=== PATIENT | female | born 1970 | race Caucasian/White ===

== ENCOUNTER 2022-05-19 07:23 | Emergency (ER) | payer OTHER ==
--- OUTSIDE RECORDS SUMMARY | 2022-05-19 07:26 | XMS REPORT | Continuity of Care Document ---
:1970 Author Organization [facility] t Address [address] [place] [address] Care Team Providers Name Role Phone RobertsonLisa redmond Attending Clinician Unavailable Problems This patient has no known problems. Allergies, Adverse Reactions, Alerts This patient has no known allergies or adverse reactions. Medications This patient has no known medications. Procedures This patient has no known procedures. Encounters Start End Encounter Admission Attending Care Care Encounter Source Date/Time Date/Time Type Type Clinicians Facility Department ID 2022-03-27 Outpatient [facility]ae[facility] [id number] Common 14:10:02 Lisa [facility] 2021-11-23 Outpatient JOSE Pae[facility] [id number] Common 14:31:02 Lisa [facility] 2021-11-06 Outpatient JOSE Pae[facility] [id number] Common 09:52:01 Lisa [facility] 2021-10-25 Outpatient Philippe [facility] [place] [id number] Common 12:21:30 Lisa [id number] [facility] 2021-10-25 Outpatient Philippe [facility] [id number] Common 12:03:01 Lisa [id number] [facility] 2021-10-25 Outpatient Philippe [facility] [place] [id number] Common 11:49:11 Lisa [id number] [facility] 2021-10-25 Outpatient Robertson, STLMLC [facility] [id number] Common 11:48:31 Lisa [id number] [facility] 2021-10-25 Outpatient Robertson, STLMLC [facility] [id number] Common 11:48:04 Lisa [id number] [facility] 2022-04-17 2022-04-17 ambulatory [facility]C [facility] [id number] Common 00:00:00 00:00:00 [facility] 2021-11-23 2021-11-23 ambulatory [facility]C [facility] [id number] Common 00:00:00 00:00:00 [facility] 2021-05-08 2021-05-08 Outpatient [facility]C [facility] [id number] Common 00:00:00 00:00:00 [facility] 2021-04-28 2021-04-28 Outpatient STLMLC [facility] [id number] Common 00:00:00 00:00:00 [facility] 2021-03-29 2021-03-29 Outpatient [facility]LMLC [facility] [id number] Common 00:00:00 00:00:00 [facility] 2020-11-08 2020-11-08 Outpatient STLMLC [facility] [id number] Common 00:00:00 00:00:00 [facility] 2020-08-09 2020-08-09 Outpatient [facility]C [facility] [id number] Common 00:00:00 00:00:00 [facility] 2020-08-08 2020-08-08 Outpatient [facility] [id number] Common 00:00:00 00:00:00 [facility] 2020-08-02 2020-08-02 Outpatient [facility]C [facility] [id number] Common 00:00:00 00:00:00 [facility] 2020-06-21 2020-06-21 Outpatient [facility]LMLC [facility] [id number] Common 00:00:00 00:00:00 [facility] Results This patient has no known results.
[2022-05-19] MEDS ORDERED: ONDANSETRON 4 MG/2 ML VIAL ONE (08:20)
[2022-05-19] MEDS ORDERED: NA CHLORIDE 0.9% 1,000 ML ONE (08:20)
--- NOTE | 2022-05-19 08:37 | RAD REPORT ---
EXAM DESCRIPTION: CT - Head Brain Wo Cont - 05/19/2022 8:10 am CLINICAL HISTORY: fever, headache COMPARISON: No comparisons TECHNIQUE: Axial 5 mm thick images of the head were obtained without IV contrast. All CT scans are performed using dose optimization technique as appropriate and may include automated exposure control or mA/KV adjustment according to patient size. FINDINGS: No intracranial hemorrhage, mass, edema or shift of mid-line structures. No acute infarcti on changes seen. No abnormal extra-axial fluid collections. Ventricles are normal. Mastoid air cells and visualized portions of the paranasal sinuses are clear. No acute bony findings. IMPRESSION: Negative non-contrast CT head examination.
[2022-05-19 08:40] LABS: Absolute Lymphocytes (CBC) 2.3 K/uL (0.7-4.9); Hematocrit 38.8 % (36.0-45.0); Lymphocytes % 17.5 % (15.3-44.8); MCV 91.8 fL (80-100); MPV 8.5 fL (7.6-11.3); RBC Red Blood Cell Count 4.23 M/uL (3.86-4.86)
[2022-05-19 08:51] LABS: Albumin 3.8 g/dL (3.4-5.0); Bilirubin Total 0.7 mg/dL (0.2-1.0); Magnesium 2.3 mg/dL (1.8-2.4); Potassium 4.1 mmol/L (3.5-5.1); Protein, Total 7.7 g/dL (6.4-8.2); Troponin High Sensitivity 4.2 pg/mL (<58.9)
--- NOTE | 2022-05-19 09:25 | RAD REPORT ---
EXAM DESCRIPTION: RAD - Chest Single View - 05/19/2022 9:17 am CLINICAL HISTORY: FEVER COMPARISON: None TECHNIQUE: AP portable chest image was obtained 05/19/2022 9:17 am . FINDINGS: Lungs are clear. Heart and vasculature are normal. No measurable pleural effusion and no p neumothorax. No acute bony abnormality seen. No acute aortic findings suspected. IMPRESSION: No acute cardiopulmonary process.
[2022-05-19 09:47] LABS: Urine Blood Negative (Negative); Urine Glucose Negative (Negative); Urine Protein Negative (Negative); Urine Specific Gravity 1.015 (1.005-1.030)
[2022-05-19 10:42] LABS: Urine Bacteria <20 /HPF (<20); Urine RBC <5 /HPF (None Seen)
[2022-05-19] MEDS ORDERED: KETOROLAC 30 MG/ML INJ ONE (11:25)
--- NOTE | 2022-05-19 12:03 | ER ---
Nurse's Notes [facility] Name: Ct Thomson Age: 51 yrs Sex: Female : 1970 Arrival Date: 05/19/2022 Time: 07:25 Bed 12 Private MD: Lisa Paez Diagnosis: Acute febrile illness Presentation: 05/19 07:35 Chief complaint: Patient states: i've had aches pains, fever, was seen at [place], did iw urine, blood tests, covid swab, flu swab, all was normal , now her fever is up to 103. Coronavirus screen: Client presents with at least one sign or symptom that may indicate coronavirus-19. Ebola Screen: Patient negative for fever greater than or equal to 101.5 degrees Fahrenheit, and additional compatible Ebola Virus Disease symptoms Patient denies exposure to infectious person. Patient denies travel to an Ebola-affected area in the 21 days before illness onset. No symptoms or risks identified at this time. Initial Sepsis Screen: Does the patient meet any 2 criteria? No. Patient's initial sepsis screen is negative. Does the patient have a suspected source of infection? No. Patient's initial sepsis screen is negative. Risk Assessment: Do you want to hurt yourself or someone else? Patient reports no desire to harm self or others. Onset of symptoms was May 05, 2022. 07:35 Method Of Arrival: Ambulatory iw 07:35 Acuity: MORE 3 iw Triage Assessment: 08:00 General: Appears in no apparent distress. Behavior is calm, cooperative. 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 - Social history:: Smoking status: Patient reports the use of cigarette tobacco products. Screenin:50 Abuse screen: Denies threats or abuse. Denies injuries from another. Nutritional iw screening: No deficits noted. Tuberculosis screening: No symptoms or risk factors identified. Fall Risk None identified. Assessment: 07:45 General: Appears in no apparent distress. Behavior is calm, cooperative. General: iw Reports chills for fever for feeling ill for fatigue for. Pain: Complains of pain in all over body aches. Neuro: Level of Consciousness is awake, alert, obeys commands, Oriented to person, place, time, situation. Cardiovascular: Patient's skin is warm and dry. Respiratory: Respiratory effort is even, unlabored, Respiratory pattern is regular, symmetrical. GI: Reports nausea. Derm: Skin is intact, is healthy with good turgor. Musculoskeletal: Range of motion: intact in all extremities. 09:50 Reassessment: Patient appears in no apparent distress at this time. Patient and/or iw family updated on plan of care and expected duration. Pain level reassessed. Patient is alert, oriented x 3, equal unlabored respirations, skin warm/dry/pink. 10:50 Reassessment: Patient appears in no apparent distress at this time. Patient and/or iw family updated on plan of care and expected duration. Pain level reassessed. Patient is alert, oriented x 3, equal unlabored respirations, skin warm/dry/pink. Vital Signs: 07:35 BP 115 / 76; Pulse 93; Resp 18; Pulse Ox 99% on R/A; Weight 74.84 kg; Height 5 ft. 3 iw in. (160.02 cm); 07:38 Temp 99.8(O); iw 07:35 Body Mass Index 29.23 (74.84 kg, 160.02 cm) iw ED Course: 07:25 Patient arrived in ED. am2 07:26 Lisa Paez FNP-C is Private Physician. am2 07:33 Juliann Avelar MD is Attending Physician. sd2 07:37 Triage completed. iw 07:38 Arm band placed on. iw 07:45 Patient has correct armband on for positive identification. iw 07:52 Eryn Gomez, RN is Primary Nurse. iw 08:11 CT Head Brain wo Cont In Process Unspecified. EDMS 08:23 Inserted saline lock: 20 gauge in left forearm, using aseptic technique. Blood kc6 collected. 08:23 Procalcitonin Sent. kc6 08:23 Troponin High Sensitivity Sent. kc6 08:23 Magnesium Sent. kc6 08:23 CMP Sent. kc6 08:23 CBC with Diff Sent. kc6 09:19 XRAY Chest (1 view) In Process Unspecified. EDMS 09:29 SARS-COV-2 RT PCR (Document "Date of Onset" if Symptomatic) Sent. kc6 09:29 Flu Sent. kc6 09:47 Urine Microscopic Only Sent. kc6 12:28 No provider procedures requiring assistance completed. IV discontinued, intact, iw bleeding controlled, No redness/swelling at site. Pressure dressing applied. Administered Medications: 08:26 Drug: NS 0.9% 1000 ml Route: IV; Rate: 1000 ml; Site: left antecubital; iw 09:30 Follow up: IV Status: Completed infusion iw 08:26 Drug: Zofran (Ondansetron) 4 mg Route: IVP; Site: left antecubital; iw 09:00 Follow up: Response: No adverse reaction iw 11:19 Drug: Ketorolac 15 mg Route: IVP; Site: left antecubital; iw 11:32 Follow up: Response: No adverse reaction iw Medication: 08:00 VIS not applicable for this client. iw Outcome: 12:02 Discharge ordered by . [email or web address] 12:28 Discharged to home ambulatory. iw 12:28 Condition: good 12:28 Discharge instructions given to patient, family, Instructed on discharge instructions, follow up and referral plans. Demonstrated understanding of instructions, follow-up care. 12:29 Patient left the ED. iw Signatures: Dispatcher [employer] Eryn Denton RN RN iw Dhara Martinez Stephanie, MD MD sd2 Kajal Ferrera kc6
--- NOTE | 2022-05-19 12:03 | EDPHYS ---
Physician Documentation [facility] Name: Ct Thomson Age: 51 yrs Sex: Female : 1970 Arrival Date: 05/19/2022 Time: 07:25 Bed 12 Private MD: Lisa Paez ED Physician Juliann Avelar HPI: 05/19 08:20 This 51 yrs old Female presents to ER via Ambulatory with complaints of Fever. sd2 08:20 51 yo F presents with CC of fever and generalized malaise for 2 weeks. Reports sd2 associated chills, body aches, fatigue and recent diarrhea and cough. Has had 3 negative home COVID tests. Has also been seen at [facility] with negative strep, flu and COVID testing as well as normal CXR. Reports she started to feel a little better yesterday but feels worse again today and has had temp up to 103F. Denies CP, SOB, congestion, urinary symptoms. Reports occasional abdominal discomfort. Has scheduled follow up with PCP this upcoming .. 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 - Social history:: Smoking status: Patient reports the use of cigarette tobacco products. ROS: 08:20 Eyes: Negative for injury, pain, redness, and discharge. sd2 08:20 ENT: Negative for injury, pain, and discharge, Cardiovascular: Negative for chest pain, palpitations, and edema, Respiratory: Negative for shortness of breath, cough, wheezing. 08:20 Back: Negative for injury and pain, MS/Extremity: Negative for injury and deformity, Skin: Negative for injury, rash, and discoloration, Neuro: Negative for numbness and tingling. Positive for headache. 08:20 Constitutional: Positive for body aches, chills, fatigue, fever, malaise. 08:20 Abdomen/GI: Positive for abdominal pain, nausea and vomiting, diarrhea, Negative for constipation, black/tarry stool, rectal bleeding. Exam: 08:20 Constitutional: This is a well developed, well nourished patient who is awake, alert, sd2 and in no acute distress. Head/Face: Normocephalic, atraumatic. Eyes: EOMI, normal conjunctiva bilaterally Chest/axilla: Normal chest wall appearance and motion. Nontender with no deformity. Cardiovascular: Regular rate and rhythm with a normal S1 and S2. No gallops, murmurs, or rubs. 2+ distal pulses. Respiratory: Lungs have equal breath sounds bilaterally, clear to auscultation and percussion. No rales, rhonchi or wheezes noted. No increased work of breathing, no retractions or nasal flaring. Abdomen/GI: Soft, non-tender, with normal bowel sounds. No guarding or rebound. No evidence of tenderness throughout. Skin: Warm, dry with normal turgor. Normal color with no rashes, no lesions, and no evidence of cellulitis. MS/ Extremity: Pulses equal, no cyanosis. Neurovascular intact. Full, normal range of motion. Ambulatory without difficulty. Psych: Awake, alert, with orientation to person, place and time. Behavior, mood, and affect are within normal limits. 08:42 ECG was reviewed by the Attending Physician. NSR, rate 79, no STEMI criteria, no ST-T sd2 wave changes Vital Signs: 07:35 BP 115 / 76; Pulse 93; Resp 18; Pulse Ox 99% on R/A; Weight 74.84 kg; Height 5 ft. 3 iw in. (160.02 cm); 07:38 Temp 99.8(O); iw 07:35 Body Mass Index 29.23 (74.84 kg, 160.02 cm) iw MDM: 08:03 Patient medically screened. sd2 08:20 Differential diagnosis: viral Infection, bacterial infection, URI, bronchitis, sd2 pneumonia UTI, gastroenteritis, among others. Data reviewed: vital signs, nurses notes. 11:57 Data reviewed: lab test result(s), EKG, radiologic studies. Counseling: I had a sd2 detailed discussion with the patient and/or guardian regarding: the historical points, exam findings, and any diagnostic results supporting the discharge/admit diagnosis, lab results, radiology results, the need for outpatient follow up, to return to the emergency department if symptoms worsen or persist or if there are any questions or concerns that arise at home. Medical screen evaluation completed. EMTALA emergency medical condition absent. ED course: Labs and imaging reviewed. Labs grossly WNCL. Mild leukocytosis present. Procalcitonin not consistent with bacterial infection. Trop neg. EKG with no ischemic changes. CT head with no acute process. CXR with no acute process. Urine with no evidence of infection. MOISE improving after Toradol. VSS. No further indications for emergent workup at this time. Will place on azithromycin after further discussion. Pt defers mono testing at this time. Will follow up with PCP this week. Likely viral syndrome. Verbalizes understanding of discharge plan and strict return precautions.. 05/19 07:51 Order name: CBC with Diff; Complete Time: 09:10 sd2 05/19 07:51 Order name: CMP; Complete Time: 09:10 sd2 05/19 07:51 Order name: Magnesium; Complete Time: 09:10 sd2 05/19 07:51 Order name: Troponin High Sensitivity; Complete Time: 09:10 sd2 05/19 07:51 Order name: Procalcitonin; Complete Time: 10:25 sd2 05/19 07:51 Order name: Stool Culture 2 05/19 07:51 Order name: Urine Microscopic Only; Complete Time: 11:13 sd2 05/19 07:51 Order name: XRAY Chest (1 view); Complete Time: 09:28 sd2 05/19 07:51 Order name: CT Head Brain wo Cont; Complete Time: 09:10 sd2 05/19 09:18 Order name: Flu; Complete Time: 10:25 kc6 05/19 09:18 Order name: SARS-COV-2 RT PCR (Document "Date of Onset" if Symptomatic); Complete Time: kc6 11:13 05/19 09:48 Order name: Urine Dipstick-Ancillary; Complete Time: 10:25 EDMS 05/19 07:51 Order name: EKG - Nurse/Tech; Complete Time: 08:39 sd2 05/19 07:51 Order name: Urine Dipstick-Ancillary (obtain specimen); Complete Time: 09:47 sd2 Administered Medications: 08:26 Drug: NS 0.9% 1000 ml Route: IV; Rate: 1000 ml; Site: left antecubital; iw 09:30 Follow up: IV Status: Completed infusion iw 08:26 Drug: Zofran (Ondansetron) 4 mg Route: IVP; Site: left antecubital; iw 09:00 Follow up: Response: No adverse reaction iw 11:19 Drug: Ketorolac 15 mg Route: IVP; Site: left antecubital; iw 11:32 Follow up: Response: No adverse reaction iw Disposition Summary: 05/19/22 12:02 Discharge Ordered Location: Home sd2 Problem: new sd2 Symptoms: have improved sd2 Condition: Stable sd2 Diagnosis - Acute febrile illness sd2 Followup: sd2 - With: Private Physician - When: 2 - 3 days - Reason: Recheck today's complaints, Continuance of care, Re-evaluation by your physician Followup: sd2 - With: Emergency Department - When: As needed - Reason: Discharge Instructions: - Discharge Summary Sheet sd2 - Fever, Adult sd2 - Form - Excuse from Work, School, or Physical Activity sd2 - Viral Illness, Adult sd2 Forms: - Work release form iw - Medication Reconciliation Form sd2 - Thank You Letter sd2 - Antibiotic Education sd2 - Prescription Opioid Use sd2 Prescriptions: - Zithromax Z-Du 250 mg Oral Tablet - take 1 tablet by ORAL route as directed for 5 days Day 1 - take two (2) tablets sd2 one time. Day 2, 3, 4 , 5 take one (1) tablet once daily.; 6 tablet; Refills: 0, Product Selection Permitted Signatures: Dispatcher [employer] Eryn Denton, RN ANNA Juliann Avelar MD MD sd2
[2022-05-19 13:02] VITALS: BP 115/76; O2SAT 99
[2022-05-19 13:04] VITALS: TEMP 99.8
--- NOTE | 2022-05-21 14:19 | EKG ---
Test Date: 2022-05-19 Test Time: 08:34:02 Form Carpenter: ADAMA MEASUREMENT RESULTS: Intervals: Rate: 78 IN: 128 QRSD: 76 QT: 374 QTc: 426 [place]: P: 70 IN: 128 QRS: 67 T: 38 INTERPRETIVE STATEMENTS: Normal sinus rhythm Normal ECG Compared to ECG 05/19/2022 08:33:27 No significant changes Electronically Signed On 05-21-22 14:18:25 CDT by Hernan Potts
--- NOTE | 2022-05-21 14:19 | EKG ---
Test Date: 2022-05-19 Test Time: 08:25:12 Chassis Wirer: ADAMA MEASUREMENT RESULTS: Intervals: Rate: 73 WI: 132 QRSD: 72 QT: 390 QTc: 429 [place]: P: 69 WI: 132 QRS: 74 T: 30 INTERPRETIVE STATEMENTS: Normal sinus rhythm Nonspecific ST abnormality Abnormal ECG No previous ECG available for comparison Electronically Signed On 05-21-22 14:18:29 CDT by Hernan Potts
--- NOTE | 2022-05-21 14:19 | EKG ---
Test Date: 2022-05-19 Test Time: 08:33:27 Ornamental Metal Erector: ADAMA MEASUREMENT RESULTS: Intervals: Rate: 79 ID: [id number] QRSD: 74 QT: 372 QTc: 426 [place]: P: 69 ID: [id number] QRS: 65 T: 38 INTERPRETIVE STATEMENTS: Normal sinus rhythm Normal ECG Compared to ECG 05/19/2022 08:25:12 ST (T wave) deviation no longer present Electronically Signed On 05-21-22 14:18:27 CDT by Hernan Potts
== END 2022-05-19 12:29 | disposition home or self-care (01) ==
LOC: ER 07:23
DX: R50.9 Fever, unspecified (principal); R51.9 Headache, unspecified; R05.9 Cough, unspecified; R53.83 Other fatigue; R19.7 Diarrhea, unspecified; Z20.822 Contact with and (suspected) exposure to COVID-19; I10 Essential (primary) hypertension; Z72.0 Tobacco use
CPT/HCPCS: 96361; 93005 ×3; 85025; 36415; 83735; 84484; 80053; 84145; 87804 ×2; 70450; 71045; 96375; 96374; 99284; U0003; J7030; J2405; 81003; 81015